=== PATIENT | female | born 1985 | race Caucasian/White ===

== ENCOUNTER 2021-06-01 05:43 | Day surgery (SDC) | payer BC ==
[2021-05-28 15:05] VITALS: BMI 35.6
[2021-06-01] MEDS ORDERED: Bupivacaine PF 0.5% 30 ML VIAL ONE (06:23)
[2021-06-01] MEDS ORDERED: EPINEPHrine 1 MG/ML AMP ONE (06:23)
[2021-06-01] MEDS ORDERED: Acetaminophen 500 MG TAB ONE ×2 (06:25→10:59)
[2021-06-01] MEDS ORDERED: Lidocaine 1% MPF 2 ML VIAL ONE (06:25)
[2021-06-01] MEDS ORDERED: Silver Nitrate Application 1 EACH ONE (06:28)
[2021-06-01] MEDS ORDERED: PROPOFOL 40 ML ONE (06:45)
[2021-06-01] MEDS ORDERED: Fentanyl 250 MCG/5 ML VIAL ONE (06:45)
[2021-06-01] MEDS ORDERED: Lidocaine 1% PF 5 ML VIAL ONE (06:46)
[2021-06-01] MEDS ORDERED: Dexamethasone 4 mg/ml Vial ONE (06:46)
[2021-06-01] MEDS ORDERED: Ondansetron PF 4 MG/2 ML Vial ONE ×2 (06:46→12:05)
[2021-06-01] MEDS ORDERED: Rocuronium Bromide 10 MG/ML (10ML VIAL) ONE (06:47)
[2021-06-01] MEDS ORDERED: Ketorolac Tromethamine 30 MG/ML VIAL ONE (06:47)
[2021-06-01] MEDS ORDERED: Glycopyrrolate 0.2 MG/ML 5 ML SYRINGE ONE (06:47)
[2021-06-01] MEDS ORDERED: Midazolam HCl 2 mg/2 ml Vial ONE (06:52)
[2021-06-01] MEDS ORDERED: PHENYLEPHRINE-NS 100 MCG/ML 10 ML SYRINGE ONE (07:29)
[2021-06-01] MEDS ORDERED: PROPOFOL 20 ML ONE (09:07)
[2021-06-01] MEDS ORDERED: Morphine 2 MG/ML VIAL ONE (10:59)
[2021-06-01] MEDS ORDERED: Ondansetron PF 4 MG/2 ML Vial IVP PRN (11:41)
[2021-06-01] MEDS ORDERED: diphenhydrAMINE 25 MG CAP PO PRN (11:41)
[2021-06-01] MEDS ORDERED: Morphine 2 MG/ML VIAL SLOW IVP PRN (11:41)
[2021-06-01] MEDS ORDERED: Acetaminophen 325 MG TAB PO PRN (11:41)
[2021-06-01] MEDS ORDERED: HYDROcodone/Acetaminophen 10/325 mg Tablet PO PRN (11:41)
[2021-06-01] MEDS ORDERED: Lactated Ringer's 1,000 ML IV SCH (11:41)
[2021-06-01 11:52] LABS: Hemoglobin 13.4 g/dL (12.0-15.5); Mean Corpuscular HGB CONC 32.7 g/dL (32.0-36.0); Mean Corpuscular Hemoglobin 27.7 pg (27.0-33.0); Mean Corpuscular Volume 84.9 fl (81.6-98.3); Mean Platelet Volume 9.5 fl (7.4-10.4); Platelet Count 287 10x3/uL (150-450); RBC Distribution Width 13.2 % (11.5-14.5); Red Blood Cell (RBC) Count 4.83 10x6/uL (3.90-5.03); White Blood Cell (WBC) Count 13.8 10x3/uL (3.5-10.5)
[2021-06-01] MEDS ORDERED: HYDROcodone/Acetaminophen 10/325 mg Tablet ONE (11:52)
[2021-06-01] MEDS ORDERED: Ketorolac Tromethamine 30 MG/ML VIAL IVP SCH (12:00)
== END 2021-06-01 13:40 | disposition home or self-care (01) ==
LOC: CSHSDC 05:43
PROVIDERS: ATTEND Obstetrics & Gynecology
DX: N80.0 Endometriosis of uterus (principal); N87.9 Dysplasia of cervix uteri, unspecified; N72 Inflammatory disease of cervix uteri; N83.8 Other noninflammatory disorders of ovary, fallopian tube and broad ligament; N80.3 Endometriosis of pelvic peritoneum; N73.6 Female pelvic peritoneal adhesions (postinfective); K21.9 Gastro-esophageal reflux disease without esophagitis; K58.9 Irritable bowel syndrome, unspecified; E66.9 Obesity, unspecified; Z68.35 Body mass index [BMI] 35.0-35.9, adult; Z79.899 Other long term (current) drug therapy
CPT/HCPCS: 85027; 88307; J0171; J0690; J1100; J1885; J2250; J2270; J2405; J2704; J3010; S0020

== ENCOUNTER 2023-09-15 10:51 | Outpatient (CLI) | payer BC | END 2023-09-15 10:52 | disposition home or self-care (01) | LOC: CSHMAMMO 10:51 | PROVIDERS: ATTEND Obstetrics & Gynecology | DX: Z12.31 Encounter for screening mammogram for malignant neoplasm of breast (principal); Z80.3 Family history of malignant neoplasm of breast | CPT/HCPCS: 77063; 77067 ==